=== PATIENT | male | born 1960 | race Caucasian/White ===

== ENCOUNTER 2024-11-15 18:44 | Inpatient (IN) | payer OTHER ==
[~2024-11-15] VITALS: Ht 190.5 cm; Wt 95.3 kg
[2024-11-15 18:50] VITALS: O2SAT 99
[2024-11-15] MEDS: ACETAMINOPHEN 325MG TABLET PO ONE (20:06)
[2024-11-15 20:44] LABS: BASOPHILS % 0.2 % (0.0-2.0); EOSINOPHILS % 0.7 % (0.0-5.0); HEMATOCRIT. 47.8 % (42.0-52.0); HEMOGLOBIN. 16.1 g/dL (14.0-18.0); LYMPHOCYTES % 14.1 % (20.0-50.0); MEAN PLATELET VOLUME 7.0 fl (7.4-10.4); MONOCYTES % 6.5 % (2.0-8.0); NEUTROPHILS % 78.5 % (40.0-76.0); PLATELET 218 x1000/uL (130-400); RED BLOOD CELL COUNT 5.61 mill/uL (4.7-6.1); RED CELL DISTRIBUTION WIDTH 13.4 % (11.6-14.6)
[2024-11-15 20:55] LABS: INR 1.0
[2024-11-15 20:57] LABS: CREATININE 1.0 mg/dL (0.6-1.3); UREA NITROGEN BLOOD 11 mg/dL (9-23)
[2024-11-15 22:00] VITALS: BP 131/93; PULSE 92; RESP 20; TEMP 36.2; O2SAT 97
[2024-11-15] MEDS ORDERED: NALOXONE HCL 0.4MG/ML VIAL IV PRN (23:45)
[2024-11-16] VITALS: BP 135/82; PULSE 91; RESP 20; TEMP 36.5; O2SAT 97
[2024-11-16] MEDS: HYDROCODONE/ACETAMINOPHEN 10/325MG TABLET PO PRN (02:07)
[2024-11-16 02:14] VITALS: BP 135/93; PULSE 92; RESP 20; TEMP 36.1956
[2024-11-16] MEDS ORDERED: ASPI-1497 MT (03:03)
[2024-11-16] MEDS ORDERED: SIMV-43 MT (03:04)
[2024-11-16 04:00] VITALS: BP 129/86; PULSE 103; RESP 20; TEMP 36.3; O2SAT 96
[2024-11-16] MEDS ORDERED: VANCOMYCIN HCL 1GM VIAL ONE (06:04)
[2024-11-16 07:25] LABS: BASOPHILS % 0.3 % (0.0-2.0); EOSINOPHILS % 1.2 % (0.0-5.0); HEMATOCRIT. 44.3 % (42.0-52.0); HEMOGLOBIN. 15.1 g/dL (14.0-18.0); LYMPHOCYTES % 15.3 % (20.0-50.0); MEAN PLATELET VOLUME 7.5 fl (7.4-10.4); MONOCYTES % 9.4 % (2.0-8.0); NEUTROPHILS % 73.8 % (40.0-76.0); PLATELET 196 x1000/uL (130-400); RED BLOOD CELL COUNT 5.19 mill/uL (4.7-6.1); RED CELL DISTRIBUTION WIDTH 13.3 % (11.6-14.6)
[2024-11-16 07:40] LABS: LDL CHOLESTEROL 120.0 mg/dL (5-100); TRIGLYCERIDE 113.0 mg/dL (0-150)
[2024-11-16 08:00] VITALS: BP 145/85; PULSE 18; RESP 18; TEMP 36.8; O2SAT 97
[2024-11-16] MEDS: ENOXAPARIN 40MG/0.4ML SYR SUBCUT SCH (08:55)
[2024-11-16] MEDS: ASPIRIN 81MG TABLET PO SCH (08:56)
[2024-11-16] MEDS: AMLODIPINE 5MG TABLET PO SCH (08:56)
[2024-11-16] MEDS ORDERED: TRANEXAMIC ACID 1000MG PREMIX 200 ML IV ONE (10:04)
[2024-11-16] MEDS ORDERED: FENTANYL CITRATE/PF 50MCG/ML 2ML VIAL ONE (10:07)
[2024-11-16] MEDS ORDERED: MORPHINE SULFATE/PF 1MG/ML 10ML AMP ONE (10:07)
[2024-11-16] MEDS ORDERED: PROPOFOL 200MG/20ML VIAL IV ONE (10:28)
[2024-11-16] MEDS ORDERED: MIDAZOLAM HCL 2 MG/2 ML VIAL ONE (10:28)
[2024-11-16] MEDS ORDERED: LIDOCAINE HCL 1% 10 MG/ML 10ML VIAL ONE (10:29)
[2024-11-16] MEDS ORDERED: ONDANSETRON HCL 4MG/2ML INJ IV PRN (11:45)
[2024-11-16] MEDS ORDERED: CEFAZOLIN 1000MG PREMIX 50 ML IV SCH (12:00)
[2024-11-16 16:00] VITALS: PULSE 109; RESP 18; TEMP 36.7; O2SAT 98
[2024-11-16] MEDS: CEFAZOLIN 1000MG PREMIX 50 ML IV SCH (17:41)
[2024-11-16] MEDS ORDERED: METOPROLOL SUCCINATE 50MG ER TABLET PO STA (18:33)
[2024-11-16 20:00] VITALS: BP 130/82; PULSE 118; RESP 20; TEMP 36.8; O2SAT 95
[2024-11-16] MEDS: ASPIRIN 325MG EC TABLET PO SCH (20:44)
[2024-11-16] MEDS: ATORVASTATIN CALCIUM 40MG TABLET PO SCH (20:44)
[2024-11-16] MEDS: METOPROLOL TARTRATE 25MG TABLET PO SCH (20:45)
[2024-11-16] MEDS ORDERED: *PATIENT'S OWN MEDICATION STORAGE XX SCH (23:15)
[2024-11-16 23:49] LABS: *AMPHETAMINES SCREEN URINE NEGATIVE (NEGATIVE); *BARBITURATES SCREEN URINE NEGATIVE (NEGATIVE); *BENZODIAZEPINES SCREEN URINE PRESUMPTIVE POSITIVE (NEGATIVE); *COCAINE SCREEN URINE NEGATIVE (NEGATIVE); METHADONE URINE SCREEN NEGATIVE (NEGATIVE); OPIATES URINE SCREEN PRESUMPTIVE POSITIVE (NEGATIVE)
[2024-11-16 23:50] LABS: CANNABINOID URINE SCREEN NEGATIVE (NEGATIVE); ECSTASY MDMA SCREEN URINE NEGATIVE (NEGATIVE); PHENCYCLIDINE URINE SCREEN NEGATIVE (NEGATIVE)
[2024-11-17] VITALS (7 sets, daily range): BP systolic 117–129; BP diastolic 66–73; PULSE 96–113; RESP 17–20; TEMP 36.8–37.1; O2SAT 95–99
[2024-11-17 07:25] LABS: CLARITY URINE CLEAR (CLEAR); COLOR URINE DARK YELLOW (YELLOW); GLUCOSE URINE NEGATIVE (NEGATIVE); KETONES URINE TRACE (NEGATIVE); LEUKOCYTE ESTERASE URINE 1+ (NEGATIVE); NITRITE URINE NEGATIVE (NEGATIVE); OCCULT BLOOD URINE 2+ (NEGATIVE); PH URINE 6.0 (4.5-8.0); PROTEIN URINE 1+ (NEGATIVE); SPECIFIC GRAVITY URINE 1.029 (1.005-1.030); UROBILINOGEN URINE 1.0 E.U./dL (0.2-1.0)
[2024-11-17 07:42] LABS: MUCUS URINE TRACE /lpf (NONE/TRACE); SQUAMOUS EPITHELIAL CELL URINE NONE SEEN /lpf (RARE/1+)
[2024-11-17 07:44] LABS: BACTERIA URINE TRACE
[2024-11-17 07:45] LABS: WBC URINE 25-50 /hpf (0-2)
[2024-11-18] VITALS: BP 118/68; PULSE 90; RESP 18; TEMP 36.2; O2SAT 96
[2024-11-18 04:00] VITALS: BP 112/74; PULSE 92; RESP 20; TEMP 36.3; O2SAT 97
[2024-11-18 08:00] VITALS: BP 108/69; PULSE 86; RESP 18; TEMP 36.4; O2SAT 98
[2024-11-18 11:25] LABS: BASOPHILS % 0.5 % (0.0-2.0); EOSINOPHILS % 3.0 % (0.0-5.0); HEMATOCRIT. 40.8 % (42.0-52.0); HEMOGLOBIN. 14.2 g/dL (14.0-18.0); LYMPHOCYTES % 15.8 % (20.0-50.0); MEAN PLATELET VOLUME 7.4 fl (7.4-10.4); MONOCYTES % 11.1 % (2.0-8.0); NEUTROPHILS % 69.6 % (40.0-76.0); PLATELET 194 x1000/uL (130-400); RED BLOOD CELL COUNT 4.84 mill/uL (4.7-6.1); RED CELL DISTRIBUTION WIDTH 13.3 % (11.6-14.6)
[2024-11-18 11:41] LABS: CREATININE 0.8 mg/dL (0.6-1.3)
[2024-11-18 11:42] LABS: UREA NITROGEN BLOOD 12 mg/dL (9-23)
[2024-11-18 12:00] VITALS: BP 110/72; PULSE 90; RESP 18; TEMP 36.7; O2SAT 98
[2024-11-18 16:00] VITALS: BP 133/79; PULSE 99; RESP 16; TEMP 36.8; O2SAT 98
[2024-11-18] MEDS: POLYETHYLENE GLYCOL 3350 (17GM) 1 DOSE PACK PO SCH (18:24)
[2024-11-18 20:00] VITALS: BP 126/73; PULSE 88; RESP 18; TEMP 36.9; O2SAT 99
[2024-11-19] VITALS: BP 111/60; PULSE 93; RESP 18; TEMP 36.3; O2SAT 95
[2024-11-19 04:00] VITALS: BP 127/67; PULSE 91; RESP 20; TEMP 36.3; O2SAT 95
[2024-11-19 08:00] VITALS: BP 134/84; PULSE 98; RESP 18; TEMP 36.3; O2SAT 95
[2024-11-19] MEDS ORDERED: DOCUSATE SODIUM 250MG CAPSULE PO PRN (10:00)
[2024-11-19] MEDS ORDERED: ASPI-1497 MT (11:01)
[2024-11-19] MEDS ORDERED: HYDR-4009 MT ×2 (11:31→11:41)
[2024-11-19 12:00] VITALS: BP 131/84; PULSE 95; RESP 18; TEMP 36.1; O2SAT 96
[2024-11-19] MEDS: BISACODYL 10MG SUPP PR NR (12:57)
[2024-11-19 16:00] VITALS: BP 136/83; PULSE 96; RESP 19; TEMP 36.2; O2SAT 97
[2024-11-19] MEDS: NA PHOS,M-B/NA PHOS,DI-BA ENEMA 118ML PR SCH (16:00)
[2024-11-19 20:00] VITALS: BP 135/83; PULSE 103; RESP 18; TEMP 36.4; O2SAT 95
[2024-11-20 04:00] VITALS: BP 131/84; PULSE 87; RESP 18; TEMP 36.4; O2SAT 98
[2024-11-20 08:00] VITALS: BP 132/86; PULSE 89; RESP 18; TEMP 36.5; O2SAT 97
[2024-11-20] MEDS: ASPIRIN 81MG TABLET PO SCH (09:02)
[2024-11-20 12:00] VITALS: BP_SYST 132; BP_SYST 133; BP_DIAS 79; BP_DIAS 86; PULSE 89; PULSE 97; RESP 18; TEMP 36.7; O2SAT 98
== END 2024-11-20 15:02 | disposition home health service (06) | DRG 522 ==
LOC: ER 18:44 → EDBEDREQTM 21:23 → EDBEDREQ 21:23 → ENRESERV 21:39 → 6EST 22:24
PROVIDERS: ADMIT Internal Medicine; ATTEND Internal Medicine
PROC: 0SRR0JZ Replacement of Right Hip Joint, Femoral Surface with Synthetic Substitute, Open Approach (ICD-10-PCS; principal; 2024-11-16)
DX: S72.091A Other fracture of head and neck of right femur, initial encounter for closed fracture (principal); E78.00 Pure hypercholesterolemia, unspecified; S50.311A Abrasion of right elbow, initial encounter; W01.0XXA Fall on same level from slipping, tripping and stumbling without subsequent striking against object, initial encounter; Y93.89 Activity, other specified; Y92.89 Other specified places as the place of occurrence of the external cause; Y99.8 Other external cause status; Z79.82 Long term (current) use of aspirin; Z79.899 Other long term (current) drug therapy
CPT/HCPCS: 36415; 72170; 73030; 73502; 80048; 80061; 80305; 81003; 83036; 85025; 86850; 86900; 93970; 96374; 96375; 97110; 97116; 97161; 97166; 97530; 99291; A4606; J0690; J1650; J2003; J2250; J2274; J2704; J3010; J3373; C1776